=== PATIENT | female | born 1955 | race African-American/Black ===

== ENCOUNTER 2022-02-23 14:19 | Emergency (ER) | payer MEDICARE, OTHER ==
[~2022-02-23 14:19] MED LIST: BUSPIRONE HCL15 MG PO; CLARITIN10 MG PO; CRESTOR5 MG PO; LISINOPRIL-HCT1 EAC1 PO; PAXIL10 MG PO; TENORMIN50 MG PO; VICODIN 10/3251 EACH PO
[2022-02-23 15:17] LABS: BASOPHIL 0.2 % (0-2); EOSINOPHIL 0 % (0-7); HCT 46.3 % (37.0-47.0); HGB 15.3 g/dl (12.5-16.0); LYMPHOCYTE 25.5 % (15-48); MCH 29.4 pg (25.0-31.0); MCV 88.9 fL (78.0-100.0); MONOCYTE 11.7 % (0-12); MPV 10.3 fL (6.0-9.5); NEUTROPHIL 61.6 % (41-80); NRBC 0; PLT 240 K/uL (150-400); RBC 5.21 M/uL (4.20-5.40); RDW 15.5 % (11.5-14.0); WBC 8.3 K/uL (4.0-10.5)
[2022-02-23 15:47] LABS: BILIRUBIN NEGATIVE (NEGATIVE); BLOOD NEGATIVE Ery/uL (NEGATIVE); CLARITY CLEAR (CLEAR); COLOR YELLOW (YELLOW); GLUCOSE (U) NORMAL (NORMAL); LEUKOCYTES NEGATIVE Leu/uL (NEGATIVE); NITRITE NEGATIVE (NEGATIVE); PROTEIN TRACE (LOW) mg/dL (NEGATIVE); pH 6.5 (5.0-9.0)
[2022-02-23 16:03] LABS: BUN/CREAT RATIO (CALC) 11.5 RATIO; CREATININE 0.87 mg/dL (0.51-0.95); POTASSIUM 3.4 mmol/L (3.5-5.1)
[2022-02-23 16:03] LABS: BACTERIA 1+
[2022-02-23 16:04] LABS: MUCOUS TRACE
== END 2022-02-23 17:59 | disposition home or self-care (01) ==
LOC: FER 14:19
PROVIDERS: Nurse Practitioner Family
DX: I95.1 Orthostatic hypotension (principal); M54.50 Low back pain, unspecified; I10 Essential (primary) hypertension; E03.9 Hypothyroidism, unspecified; F17.210 Nicotine dependence, cigarettes, uncomplicated; Z79.899 Other long term (current) drug therapy; Z79.890 Hormone replacement therapy; W18.30XA Fall on same level, unspecified, initial encounter; Y92.009 Unspecified place in unspecified non-institutional (private) residence as the place of occurrence of the external cause
CPT/HCPCS: 36415; 70450; 72125; 72220; 80048; 81001; 84484; 85025; 93005; J1100; J1885; J7030